=== PATIENT | female | born 1975 | race Caucasian/White ===

== ENCOUNTER 2021-04-13 12:12 | Outpatient (REF) | payer BC, SELFPAY ==
[2021-04-14 16:14] LABS: COVID-19 RT-PCR UVMMC Result Negative (Negative)
== END 2021-04-13 12:13 | disposition home or self-care (01) ==
LOC: LBN 12:12
PROVIDERS: PCP Nurse Practitioner; Visit Provider Family Medicine
DX: Z20.822 Contact with and (suspected) exposure to COVID-19 (principal)
CPT/HCPCS: U0003

== ENCOUNTER 2021-08-08 05:06 | Outpatient (CLI) | payer BC, SELFPAY ==
[2021-08-08 16:14] LABS: HCT 36.7 % (36.0-46.0); HGB 11.8 g/dL (11.2-15.7); MCH 29.6 pg (27.0-33.0); MCHC 32.2 % (32.0-36.0); MCV 92.2 fL (80-95); MPV 10.6 fL (8.0-11.0); Platelet Count 367 10^3/uL (130-400); RBC 3.98 10^6/uL (3.93-5.22); RDW 13.1 % (11.7-14.6); RDW-SD 44.5 fL; WBC 8.22 10^3/uL (4.4-10.8)
[2021-08-08 18:32] LABS: TSH (W/Ref FT4) 1.49 uIU/mL (0.36-3.74); Vitamin B12 > 2000 pg/mL (193-986)
[2021-08-08 18:46] LABS: Vitamin D 25 Total 47.1 ng/mL (30-100)
== END 2021-08-08 05:07 | disposition home or self-care (01) ==
LOC: LBO 05:06
PROVIDERS: PCP Nurse Practitioner; Visit Provider Nurse Practitioner
DX: Z98.84 Bariatric surgery status (principal); F41.8 Other specified anxiety disorders; K21.9 Gastro-esophageal reflux disease without esophagitis; F31.81 Bipolar II disorder; Z00.00 Encounter for general adult medical examination without abnormal findings
CPT/HCPCS: 36415; 82306; 85027; 82607; 84443

== ENCOUNTER 2022-06-07 01:05 | Outpatient (CLI) | payer OTHER, SELFPAY ==
--- NOTE | 2022-06-07 07:44 | DI.MAMMO_ITS ---
Exam(s) MAMMO SCREENING EXAM: MAMMO SCREENING CLINICAL HISTORY: screening,Z12.39. TECHNIQUE: Bilateral full field digital CC and MLO mammographic images were obtained with 3D tomosyn thesis and utilizing computer aided detection (CAD). COMPARISON: Prior outside mammograms were reviewed. FINDINGS: There has been no significant change in the appearance and distribution of the fibroglandular tissue. There are no new spiculated masses nor malignant appearing microcalcification groups. There is no significant architectural distortion nor skin thickening-retraction. IMPRESSION: No radiographic evidence of malignancy. BI-RADS Category 1 - Negative Breast Density - Category B - Scattered areas of fibroglandular density Breast density Category C or D implies that the patient has dense breast tissue. Dense breast tissue can make it harder to find cancer on a mammogram. Dense breast tissue is also associated with an incr eased risk of breast cancer. This information about the result of the mammogram report was provided to the patient to raise their awareness. Use this report when you speak with the patient about their risks for breast cancer, which includes their family history. At that time, you may recommend additional screening tests (Ultrasoun d or MRI) as these tests may add significant information. A negative radiographic report should not delay biopsy if a dominant or clinically suspicious mass is present. Up to ten percent of cancers are not identified on mammography. A negative report may reinforce clinical impression. Adenosis and dense breasts may obscure an underlying neoplasm. False positive reports average 6 to 10%. Patient will receive a letter notifying them of these results.
== END 2022-06-07 01:25 ==
LOC: DI 01:05
PROVIDERS: PCP Nurse Practitioner; Visit Provider Nurse Practitioner
DX: Z12.31 Encounter for screening mammogram for malignant neoplasm of breast (principal)
CPT/HCPCS: 77063; 77067

== ENCOUNTER 2022-08-16 02:46 | Outpatient (CLI) | payer OTHER, SELFPAY ==
[2022-08-16 07:23] LABS: Abs Immature Grans 0.04 10^3/uL (0.0-0.06); Absolute Basophil Count 0.09 10^3/uL (0.0-0.2); Absolute Eosinophil Count 0.27 10^3/uL (0.0-0.7); Absolute Lymphocyte Count 2.77 10^3/uL (1.2-3.4); Absolute Monocyte Count 0.59 10^3/uL (0.1-0.8); Absolute Neutrophil Count 5.98 10^3/uL (1.2-6.7); Basophils % 0.9; Eosinophils % 2.8; HCT 38.8 % (36.0-46.0); HGB 12.7 g/dL (11.2-15.7); Immature Grans % 0.4; Lymphocytes % 28.4; MCH 28.4 pg (27.0-33.0); MCHC 32.7 % (32.0-36.0); MCV 87 fL (80-95); MPV 10.2 fL (8.0-11.0); Monocytes % 6.1; Neutrophils % 61.4; Platelet Count 395 10^3/uL (130-400); RBC 4.47 10^6/uL (3.93-5.22); WBC 9.74 10^3/uL (4.4-10.8)
[2022-08-16 09:23] LABS: ALT 24 U/L (14-59); AST 13 U/L (15-37); Albumin 3.7 g/dL (3.4-5.0); Alkaline Phosphatase 119 U/L (46-116); Anion Gap 7.6 mmol/L (3-11); BUN 12 mg/dL (7-18); Bilirubin, Total 0.3 mg/dL (0.2-1.0); CO2 28.4 mmol/L (21.0-32.0); CREATININE 0.8 mg/dL (0.55-1.02); Calcium 9.3 mg/dL (8.5-10.1); Calculated LDL 75 mg/dL (<100); Chloride 105 mmol/L (98-107); Cholesterol 168 mg/dL (<200); Estimated GFR 91.97 (mL/min/1.73m2); Ferritin 21 ng/mL (8-252); Glucose 102 mg/dL (74-106); HDL Cholesterol 71 mg/dL (40-60); Potassium 4.3 mmol/L (3.5-5.1); Sodium 141 mmol/L (136-145); TSH (W/Ref FT4) 3.87 uIU/mL (0.36-3.74); Total Protein 7.3 g/dL (6.4-8.2); Triglyceride 111 mg/dL (<150)
[2022-08-16 09:32] LABS: Vitamin B12 > 2000 pg/mL (193-986)
[2022-08-16 09:49] LABS: FREE T4 0.86 ng/dL (0.76-1.46)
== END 2022-08-16 02:47 | disposition home or self-care (01) ==
LOC: LBO 02:46
PROVIDERS: PCP Nurse Practitioner; Visit Provider Nurse Practitioner
DX: F31.81 Bipolar II disorder (principal); Z98.84 Bariatric surgery status
CPT/HCPCS: 36415; 80053; 80061; 82607; 82728; 84439; 84443; 85025

== ENCOUNTER 2022-10-31 15:56 | Outpatient (REF) | payer OTHER, SELFPAY | END 2022-10-31 15:57 | disposition home or self-care (01) | LOC: LBN 15:56 | PROVIDERS: PCP Nurse Practitioner; Visit Provider Obstetrics & Gynecology Gynecology | DX: R30.0 Dysuria (principal) | CPT/HCPCS: 87086 ==

== ENCOUNTER 2023-01-01 18:25 | Outpatient (CLI) | payer OTHER, SELFPAY ==
[2023-01-01 15:54] LABS: Lithium < 0.2 mmol/l (0.6-1.2)
== END 2023-01-01 18:26 | disposition home or self-care (01) ==
LOC: LBO 18:29
PROVIDERS: PCP Nurse Practitioner; Visit Provider Nurse Practitioner
DX: F31.81 Bipolar II disorder (principal); Z79.899 Other long term (current) drug therapy; Z51.81 Encounter for therapeutic drug level monitoring
CPT/HCPCS: 36415; 80178

== ENCOUNTER 2023-01-03 15:44 | Outpatient (CLI) | payer OTHER, SELFPAY ==
--- NOTE | 2023-01-03 15:30 | RT.EKG_ITS ---
APPROVED REPORT Exam: Resting ECG Reason for Exam: med monitoring Patient Location: O HR:64 bpm ECG Measurements Heart Rate 64 AXIS SD 136 P 50 QRSd 90 QRS -8 QT 411 T 7 QTc 424 Conclusion Sinus rhythm...normal P axis, V-rate 50- 99 Ventricular premature complex...V complex w/ short R-R interval Low voltage, precordial leads...precordial leads <1.0mV Nonspecific T abnrm, anterolateral leads...T <-0.10mV, I aVL V2-V6
== END 2023-01-03 15:45 | disposition home or self-care (01) ==
LOC: DI.KIM 15:45
PROVIDERS: PCP Nurse Practitioner; Visit Provider Nurse Practitioner
DX: F31.81 Bipolar II disorder (principal); Z51.81 Encounter for therapeutic drug level monitoring
CPT/HCPCS: 93010

== ENCOUNTER 2023-01-09 15:13 | Outpatient (CLI) | payer OTHER, SELFPAY ==
[2023-01-09 11:01] LABS: Lithium 0.7 mmol/l (0.6-1.2)
== END 2023-01-09 15:14 | disposition home or self-care (01) ==
LOC: LBO 15:13
PROVIDERS: PCP Nurse Practitioner; Visit Provider Nurse Practitioner
DX: F31.81 Bipolar II disorder (principal); Z51.81 Encounter for therapeutic drug level monitoring; Z79.899 Other long term (current) drug therapy
CPT/HCPCS: 36415; 80178

== ENCOUNTER 2023-01-16 19:16 | Outpatient (REF) | payer OTHER, SELFPAY ==
[2023-01-16 20:23] LABS: COVID-19 PCR Negative (Negative); Influenza A PCR Negative (Negative); Influenza B PCR Negative (Negative); RSV PCR Negative (Negative)
[2023-01-16 20:36] LABS: Source Nasopharynx
== END 2023-01-16 19:17 | disposition home or self-care (01) ==
LOC: LBN 19:16
PROVIDERS: PCP Nurse Practitioner; Visit Provider Family Medicine
DX: J06.9 Acute upper respiratory infection, unspecified (principal); Z20.822 Contact with and (suspected) exposure to COVID-19
CPT/HCPCS: 87637

== ENCOUNTER 2023-02-16 10:04 | Outpatient (CLI) | payer OTHER, SELFPAY ==
[2023-02-16 11:07] LABS: Lithium 0.7 mmol/l (0.6-1.2)
== END 2023-02-16 10:05 | disposition home or self-care (01) ==
LOC: LBO 10:04
PROVIDERS: PCP Nurse Practitioner; Visit Provider Nurse Practitioner
DX: F31.81 Bipolar II disorder (principal)
CPT/HCPCS: 36415; 80178

== ENCOUNTER 2023-04-17 08:22 | Day surgery (SDC) | payer OTHER, SELFPAY ==
--- NOTE | 2023-04-16 23:42 | SCONE_ITS ---
Date of service: 04/17/23 Time of Service: 23:45 Assessment and Plan Assessment and plan (1) Regurgitant esophagitis: Status: Acute Assessment and plan: Patient is to come on Sunday for evaluation of her upper GI symptoms syndrome and lower GI syndrome there is concern that she is having breakthrough symptoms. She wakes up often in the morning with material on her pillow and true regurgitation Planning: From the CT scans she has had it does not appear that the prednisone has slipped and is no longer and it is does not manage anatomical position and is not applying any benefit. I did switch her over to [place] and she can use at as well as Carafate as needed Remember to not mix it with any of the medications Patient may need to be admitted to hospital if that help take care of himself after the surgery. He has very limited resources (2) Weight gain: Status: Acute (3) Concussion: Status: Acute (4) Dysuria: Status: Acute (5) Obesity: Status: Chronic (6) Depression: Status: Chronic (7) Bipolar 2 disorder, major depressive episode: Status: Acute (8) Anxiety: Status: Chronic (9) GERD (gastroesophageal reflux disease): Status: Chronic History of Present Illness Narrative: Portia Priceis a 47-year-old female who had a previous lab been placed for weight loss. This was converted to medical pouch she has done very well with the and lost a large amount of weight. In the last 6 months she has not been good about taking her medications and she has been eating a lot of foods that are highly processed or fried. She has noted that she has put weight back. Since she is put the weight back on. She notices that she has been having more more problems with belching burps vomit that wakes her up at night. She is regaining back to 4- year history of the problem that she had not initially lost with gastric bypass she was on omeprazole twice a day we will switch her over to once a day and for some breakthrough Carafate during the day and at bedtime. We gave her extensive literature about foods that are good for you with following Mediterranean diet low on red meat refined white carbs plenty of fruits and vegetables. Review of Systems All systems reviewed & are unremarkable except as noted in HPI and below PFSH All Active Problems Regurgitant esophagitis (Acute) Weight gain (Acute) Concussion (Acute) Suprapubic pain, acute (Acute) Dysuria (Acute) Exercise-induced bronchoconstriction (Acute) Obesity (Chronic) hx gastric bypass Depression (Chronic) Bipolar 2 disorder, major depressive episode (Acute) [facility] prescribes all psych meds Anxiety (Chronic) GERD (gastroesophageal reflux disease) (Chronic) Medical History History of gastrostomy tube placement (~10/14/15) Protein calorie malnutrition Intestinal malabsorption PCOS (polycystic ovarian syndrome) started age 12 Hearing loss (~2019) right ear, audiology spring 2020- no abnormalities History of COVID-19 suspect- never tested Surgical History S/P repair of paraesophageal hernia (~10/12/15) H/O left wrist surgery H/O gastric bypass (~10/12/15) Gabriela-en-y H/O laparoscopy (~10/14/15) diagnostic S/P bariatric surgery Family History Mother Depression Hypertension Heart disease Father No problems noted. Sister No problems noted. Sister No problems noted. Sister No problems noted. Son , 10 weeks Heart disease Son No problems noted. Paternal Grandmother , 90's No problems noted. Paternal Uncle Substance use disorder Paternal Cousin Substance use disorder Paternal Grandfather Cancer lung cancer Maternal Grandmother Depression Maternal Aunt Depression Social History Smoking/Tobacco Use Status: Never Second Hand Exposure: Yes Smoking risk assessment performed?: Yes Alcohol Intake: current Alcohol Intake frequency: a few times a month Alcohol type: wine and hard liquor Counseling given: No Drug use: Never Substance use type: does not use Counseling given: No Adopted: No Caregiver/Support person: No Foster care: No Household members: spouse and other Details: Ricardo Nichols Housing: house Number of Children: 1 Communication Needs: Corrective Lenses Education Level: college Details: bachelor's degree Do you need help understanding health information?: Never current occupation: [employer] Pets and animals: Yes Pets and animals: dog(s) Sexually active: Yes Do you think of yourself as: lesbian/pyle/homosexual Current gender identity: female What is your relationship status?: How often do you talk on the phone with friends or family?: twice per week How often do you get together with friends or relatives?: once per week How often do you attend anabaptist or lutheran services?: 1-3 times per year Do you belong to any clubs or organized social groups?: yes Panel score (0-1 are the most socially isolated patients): 3 What type of physical activity do you participate in: other Details: VR headset Duration: 15-30 minutes/day Frequency: 1-2 times per week Julisa/Congregation: None Special julisa needs: No Seatbelt use: always Helmet use: No Drive intox or ride w/intox bulk driver: No Working smoke detector in home: Yes Carbon monox detector in home: Yes Do you feel safe at home: Yes Do you feel safe in your relationship?: Yes Exam Narrative Exam Narrative: PHYSICAL EXAM GENERAL APPEARANCE: Alert, healthy appearance, oriented, x 3,? in no acute distress HYDRATION: Well hydrated HEAD, EYES, EARS, NECK, THROAT: Head is normocephalic, pupils equal, round, reactive to light and accommodation, ocular movement intact, sclera clear and no jaundice. ?Dentition intact. No sore throat.? No jaw pain. No thrush NECK: no lymphadenopathy.? Trachea midline.? Neck supple.? No JVD LUNGS: normal respiration/normal chest excursion. ?Clear to auscultation bilaterally. ?No wheeze. ?HEART: Regular rate and rhythm. no murmurs ABDOMEN: soft and non-tender to palpation.? Normal bowel sounds.? No hernias.? Basic Metabolic Sodium 141 mmol/L (136-145) 08/16/22 Potassium 4.3 mmol/L (3.5-5.1) 08/16/22 Chloride 105 mmol/L (98-107) 08/16/22 Carbon Dioxide 28.4 mmol/L (21.0-32.0) 08/16/22 BUN 12 mg/dL (7-18) 08/16/22 Creatinine 0.8 mg/dL (0.55-1.02) 08/16/22 Glucose 102 mg/dL (74-106) 08/16/22 Comprehensive Metabolic Panel Sodium 141 mmol/L (136-145) 08/16/22 07:11 Potassium 4.3 mmol/L (3.5-5.1) 08/16/22 07:11 Chloride 105 mmol/L (98-107) 08/16/22 07:11 Carbon Dioxide 28.4 mmol/L (21.0-32.0) 08/16/22 07:11 BUN 12 mg/dL (7-18) 08/16/22 07:11 Creatinine 0.8 mg/dL (0.55-1.02) 08/16/22 07:11 Glucose 102 mg/dL (74-106) 08/16/22 07:11 Calcium 9.3 mg/dL (8.5-10.1) 08/16/22 07:11 Total Bilirubin 0.3 mg/dL (0.2-1.0) 08/16/22 07:11 ALT 24 U/L (14-59) 08/16/22 07:11 AST 13 U/L (15-37) L 08/16/22 07:11 Alkaline Phosphatase 119 U/L (46-116) H 08/16/22 07:11 Total Protein 7.3 g/dL (6.4-8.2) 08/16/22 07:11 Albumin 3.7 g/dL (3.4-5.0) 08/16/22 07:11 Diabetes results Glucose 102 mg/dL (74-106) 08/16/22 Total Cholesterol 168 mg/dL (<200) 08/16/22 LDL Cholesterol, Calc 75 mg/dL (<100) 08/16/22 HDL Cholesterol 71 mg/dL (40-60) 08/16/22 Triglycerides 111 mg/dL (<150) 08/16/22 BUN 12 mg/dL (7-18) 08/16/22 Creatinine 0.8 mg/dL (0.55-1.02) 08/16/22 Est GFR (CKD-EPI 2020) 91.97 (mL/min/1.73m2) 08/16/22 Sodium 141 mmol/L (136-145) 08/16/22 Potassium 4.3 mmol/L (3.5-5.1) 08/16/22 Chloride 105 mmol/L (98-107) 08/16/22 Carbon Dioxide 28.4 mmol/L (21.0-32.0) 08/16/22 Calcium 9.3 mg/dL (8.5-10.1) 08/16/22 AST 13 U/L (15-37) L 08/16/22 ALT 24 U/L (14-59) 08/16/22 Total Protein 7.3 g/dL (6.4-8.2) 08/16/22 Albumin 3.7 g/dL (3.4-5.0) 08/16/22 TSH 3.87 uIU/mL (0.36-3.74) H 08/16/22 Vitamin B12 > 2000 pg/mL (193-986) H 08/16/22 Tick borne Illnesses No Data to Display Lipid profile Total Cholesterol 168 mg/dL (<200) 08/16/22 HDL Cholesterol 71 mg/dL (40-60) 08/16/22 LDL Cholesterol, Calc 75 mg/dL (<100) 08/16/22 Triglycerides 111 mg/dL (<150) 08/16/22
--- NOTE | 2023-04-17 08:15 | ANES.PREOP_ITS ---
General Info Date of Service Date Performed: 04/17/23 Height: 5 ft 2 in Weight: 86.183 kg Body Mass Index (BMI): 34.7 Surgical Procedure: Operation Date: 04/17/23 09:05 Proposed Procedure Side Surgeon p Gastroscopy Xi Jennings, Meds Allergies and Home Medications Allergies Allergy/AdvReac Type Severity Reaction Status Date / Time aripiprazole [From Abilify] Allergy Unknown Other (See Verified 04/17/23 08:44 Comment) cucumber Allergy Unknown Skin Rash Verified 04/17/23 08:44 latex Allergy Unknown Skin Rash Verified 04/17/23 08:44 NSAIDS (Non-Steroidal Allergy Unknown Diarrhea Verified 04/17/23 08:44 Anti-Inflamma Latuda AdvReac Intermediate parathesias Uncoded 04/17/23 08:44 Home Medication Medication Instructions Recorded calcium carbonate 500 mg-vitamin 1 tab PO BID 12/14/20 D3 5 mcg (200 unit) tablet albuterol sulfate 90 mcg/actuation 2 puff inhalation Q6H PRN 07/28/21 aerosol inhaler bronchospasm #8.5 grams hyoscyamine sulfate 0.125 mg 0.125 mg PO BID-QID PRN dyspepsia 03/23/22 disintegrating tablet #30 tabs therapeutic multivitamin 1 tab PO BID 05/17/22 tramadol 50 mg tablet 50 mg PO DAILY PRN 08/15/22 melatonin 5 mg tablet 2.5 mg PO HS PRN 11/08/22 lithium carbonate 450 mg 900 mg (2 x 450 mg) PO DAILY #180 01/03/23 tablet,extended release tabs ondansetron HCl 8 mg tablet 8 mg PO TID PRN nausea and 01/03/23 vomiting #30 tabs acetaminophen 500 mg capsule 500 mg PO Q6H PRN fever or pain 01/16/23 clonazepam 0.5 mg tablet 0.5 mg PO BID #60 tabs 02/12/23 eszopiclone 3 mg tablet 3 mg PO QHS #90 tabs 02/12/23 hydroxyzine pamoate 25 mg capsule 100 mg (4 x 25 mg) PO BID PRN 02/12/23 itching or anxiety #60 caps lamotrigine 200 mg tablet 200 mg PO DAILY #90 tabs 02/12/23 pantoprazole 40 mg tablet,delayed 40 mg PO DAILY #90 tabs 04/12/23 release (Protonix) omeprazole 20 mg capsule,delayed mg 04/17/23 release Current Visit Medications: Current Medications Generic Name Dose Route Start Last Admin Trade Name Chris PRN Reason Stop Dose Admin Ringer's Solution 1,000 mls @ 80 mls/hr 04/17/23 06:00 IV 04/17/23 23:59 INFUSION TISH IV Miscellaneous Supplies 1 each 04/17/23 06:00 Iv Access IV 04/17/23 23:59 DIRECTED TISH Sodium Chloride 0 ml 04/17/23 06:00 Normal Saline Flush 10 Ml Syr IV 04/17/23 23:59 PRN PRN Sodium Chloride 0 ml 04/17/23 06:00 Normal Saline 10 Ml Vial IJ 04/17/23 23:59 DIRECTED PRN Sterile Water 0 ml 04/17/23 06:00 Water,Injection,Sterile 10 Ml Vial IJ 04/17/23 23:59 DIRECTED PRN PFSH Active Problems Active Problems: Problem Status Onset Code Regurgitant esophagitis K21.00 Weight gain R63.5 Concussion S06.0XAA Suprapubic pain, acute R10.2 Dysuria R30.0 Exercise-induced bronchoconstriction J45.990 Obesity E66.9 Depression F32.9 Bipolar 2 disorder, major depressive episode F31.81 Anxiety F41.9 GERD (gastroesophageal reflux disease) K21.9 Medical History Medical History History of gastrostomy tube placement (~10/14/15) Protein calorie malnutrition Intestinal malabsorption PCOS (polycystic ovarian syndrome) started age 12 Hearing loss (~2019) right ear, audiology spring 2020- no abnormalities History of COVID-19 suspect- never tested Surgical History Surgical History S/P repair of paraesophageal hernia (~10/12/15) H/O left wrist surgery H/O gastric bypass (~10/12/15) Gabriela-en-y H/O laparoscopy (~10/14/15) diagnostic S/P bariatric surgery Tobacco Smoking/Tobacco Use Status: Never Passive smoking exposure: Yes Second hand exposure: Yes Alcohol Alcohol Intake: current Alcohol intake frequency: a few times a month Alcohol type: wine and hard liquor Substance Use Substance use: Never Substance use type: does not use Vital Signs and Lab Results Vital Signs Most Recent Vital Signs in EMR: Temp Pulse Resp BP Pulse Ox 36.7 C 72 18 105/80 99 04/17/23 08:41 04/17/23 08:41 04/17/23 08:41 04/17/23 08:41 04/17/23 08:41 Lab Results Blood Type / Crossmatch: No Data to Display Complete Blood Count: No Data to Display Complete Metabolic Panel: No Data to Display Liver Function Panel: No Data to Display Coagulation Panel: No Data to Display Cardiac Panel: No Data to Display Arterial Blood Gas: No Data to Display Venous Blood Gas: No Data to Display Pancreas Panel: No Data to Display Thyroid Panel: No Data to Display Infectious Disease: No Data to Display Blood Cultures: No Data to Display Toxicology Panel: No Data to Display Panel: No Data to Display Imaging and Studies Imaging and Studies Study information below may be from another EMR and interpreted by another pr ovider. Please see original notes in EMR for more complete details. EKG Summary: 01/06: sinus, PVCs. Anesthesia Assessment and Plan Anesthesia History Personal History: No History of Anesthesia Complications Family History: No Family History of Anesthesia Complications Exercise Tolerance Exercise Tolerance: Metabolic Equivalents>4 Cardiac & Pulmonary Exam Cardiac Exam: Normal S1/S2 Heart Sounds Pulmonary Exam: Clear Bilateral Breath Sounds Implantable Cardiac Device Does patient have a Pacemaker or an ICD?: No Airway Exam Known Difficult Airway: No Mallampati Class: 2 Mouth Opening: Normal (> 3cm) Thyromental Distance: Greater than 3 cm Neck Range of Motion: Full ROM Neck Circumference: Normal Teeth Condition: Normal Dentition ASA Classification ASA Score: ASA 2 Emergency Case?: No NPO Status NPO Status: NPO Clears >2 hours, Solids >8 hours Status Status: Not Relevant due to Medical History Anesthesia Plan Resuscitation Status: Full Code Anesthesia Technique: General Anesthesia Airway Planned: Natural Airway Monitors Used: Standard Monitors Preoperative Comments:: 47 yo female with GERD for EGD. Sig PMHx: exercise induced bronchoconstriction (albuterol), esophagitis/GERD (protonix), depression/bipolar/anxiety (lithium), never smoker, occ EtOH.
[2023-04-17 08:41] VITALS: BP 105/80; PULSE 72; RESP 18; TEMP 36.7; O2SAT 99
[2023-04-17 09:03] VITALS: BMI 34.7
[2023-04-17] MEDS: Lactated Ringers 1,000 ML 80 ML IV (09:10)
--- NOTE | 2023-04-17 09:40 | STOM_PTH ---
PATIENT: Portia Mera LOC: [facility] U#:[id number] AGE/SX: 47/F ROOM: RE04/17/[address]: Xi Jennings : 1975 BED: DIS: 04/17/2023 SPEC #: [id number] RECD: 04/17/23 12:53 STATUS: ABIGAIL RE #: [id number] ERI: 04/17/23 09:[address]: Xi Jennings DEPT: Surgical Specimen RECD BY: Alice Duncan ENTERED: 04/17/23 12:55 SP TYPE: STOMACH OTHR DR: Elin Putnam APRN Tissues: 1 - STOMACH BIOPSY 2 - STOMACH BIOPSY 3 - ESOPHAGUS BIOPSY 4 - ESOPHAGUS BIOPSY Procedures: GROSS AND MICRO LEVEL 4 Comments: [id number]
--- NOTE | 2023-04-17 09:49 | W.PM.DSUDISC ---
Date of service: 04/17/23 Time of Service: 09:49 Discharge Plan Disposition Condition: Fair Discharge Details Reason For Visit: egd Attending Provider: Xi Jennings Primary Care Provider: Elin Putnam Home Meds and New Rx's Prescriptions: No Action albuterol sulfate 90 mcg/actuation HFA aerosol inhaler 2 puff inhalation Q6H PRN (Reason: bronchospasm) Qty: 8.5 1RF melatonin 5 mg tablet 2.5 mg PO HS PRN tramadol 50 mg tablet 50 mg PO DAILY PRN Patient Comments: Last filled 2020 clonazepam 0.5 mg tablet 0.5 mg PO BID Qty: 60 2RF hydroxyzine pamoate 25 mg capsule 100 mg PO BID PRN (Reason: itching or anxiety) Qty: 60 1RF lamotrigine 200 mg tablet 200 mg PO DAILY Qty: 90 3RF eszopiclone 3 mg tablet 3 mg PO QHS Qty: 90 1RF Rx Instructions: cancel 2mg script yet acetaminophen 500 mg capsule 500 mg PO Q6H PRN (Reason: fever or pain) pantoprazole [Protonix] 40 mg tablet,delayed release (DR/EC) 40 mg PO DAILY Qty: 90 4RF Patient Comments: pt reports she has not started yet lithium carbonate 450 mg tablet extended release 900 mg PO DAILY Qty: 180 3RF Rx Instructions: Generic Eskalith please. ondansetron HCl 8 mg tablet 8 mg PO TID PRN (Reason: nausea and vomiting) Qty: 30 2RF calcium carbonate-vitamin D3 500 mg(1,250mg) -200 unit tablet 1 tab PO BID hyoscyamine sulfate 0.125 mg tablet,disintegrating 0.125 mg PO BID-QID PRN (Reason: dyspepsia) Qty: 30 0RF therapeutic multivitamin Tablet 1 tab PO BID omeprazole 20 mg capsule,delayed release(DR/EC) Discharge Instructions Additional Instructions: Post EGD Instruction ?You had anesthesia for your EGD/stomach scope today.? For your safety, please do the following for the next twenty-four (24) hours: Do Not operate a motor vehicle (car, truck, motorcycle, etc.) Do Not drink alcoholic beverages or use any recreational drugs for the first 24 hours or while taking pain medications. The medications in your body may have a reaction that can be dangerous. Do Not make any important decisions or sign any important papers You have just had a gastroscopy (EGD) or upper GI tract examination. It is important for your smooth recovery that you carefully follow the recommendations below. Do not hesitate to call if any questions should arise about your anesthesia, condition, or care. -Symptoms you may experience during the next 24 hours: ?1. Mild abdominal pain or excessive gas or a bloated feeling which improves with rest, liquids, eating? slightly, and walking as tolerated. 2. Drowsiness and/or forgetfulness because of the medications you were given. ?3. Throat numbness for about 1 hour. 4. A sore throat which you can treat with throat lozenges or by gargling with salt water 4-5 times a day. 5. Redness at the site of your IV which you can treat with warm compresses. SPECIAL INSTRUCTIONS: 1. You may resume your previous diet in one hour. We recommend a light meal to start, then progress as tolerated. 2. Restart regular medications in one hour. 3. No aspirin or non-steroidal containing medication for three days. 4. No lifting over 20 pounds or strenuous activity for the first 24 hours after your procedure. After 24 hours there are no restrictions on your activity, but you may feel fatigued for a few days. Findings: micropounch stricture-slight wrap appears intact/wait for results of CT cont ppi -Medications: -Continue to follow lifestyle modifications: No alcohol, tobacco products, Aspirin or NSAID's (ibuprofen, Motrin, Naprosyn, aleve, etc).? Try to limit/avoid:? soda pop/any carbonated beverages, caffeine (including tea & chocolate), and acidic foods, (tomatoes, citrus, onions, peppermints) spicy or fried/fatty foods. Do not lie down for 30 minutes after eating, and do not eat 2 hours prior to bedtime. Avoid wearing tight fitting clothing/ belts. Follow up: -My office will send a letter with the results of your biopsy?s in 2-3wks time. Call the office at [phone] (Office) or [phone] (Hospital), or go to the ER right away if you notice any of the followin. Vomiting blood and /or ?coffee ground? material. ?2. Worsening of abdominal pain or cramping. ?3. Trouble with breathing, cough, and/or fever (temperature above 101.5 F). 4. Increasing pain with swallowing. ?5. Chest pain. 6. Any new symptoms. 7. Worsening of the redness at the IV site Activity:: see above Diet:: As Tolerated DS: Diagnosis Discharge Diagnosis (1) Regurgitant esophagitis: Status: Acute (2) Weight gain: Status: Acute (3) Concussion: Status: Acute (4) Dysuria: Status: Acute (5) Obesity: Status: Chronic (6) Depression: Status: Chronic (7) Bipolar 2 disorder, major depressive episode: Status: Acute (8) Anxiety: Status: Chronic (9) GERD (gastroesophageal reflux disease): Status: Chronic
--- NOTE | 2023-04-17 09:52 | ENDO_ITS ---
Date of service: 04/17/23 Time of Service: 09:52 Endoscopy Report DATE OF PROCEDURE: 04/17/23 PRE-OP DIAGNOSIS: Worsening reflux. History of gastric bypass and Naif POST-OP DIAGNOSIS: same SURGEON: Xi Jennings ANESTHESIA TYPE: General:No Airway ESTIMATED BLOOD LOSS: 1 PATHOLOGY: other COMPLICATIONS: None DISPOSITION: same day PREP: Miralax/Dulcolax PROCEDURE DESCRIPTION: After informed consent was obtained the patient was take to the procedure room and placed in a supine position. Monitors were applied and a time out was done. The patients name, date of , procedure type, allergies to medications and metal in their body was reviewed. A bite block was placed and the patient was sedated. Once sedated and comfortable the gastroscope was advanced through the oropharynx which was grossly normal into the esophagus. The proximal and mid- esophagus were normal. In the distal esophagus : The wrap does appear to have loosened, but is still present. She does have a slight stricture 2 cm above the GE junction. However I am able to pass the scope through the stricture. She has a very small micro pouch- still ~150cc. The GE junction is at 42 cm and the gastrojejunal anastomosis at 38 cm. The gastrojejunal anastomosis is widely patent. There is no signs of bleeding or stricture. I am able to pass the scope about 30 cm down the limb. The mucosa appears pink and healthy. A biopsy was taken. The scope is retroflexed. There is no hiatal hernia. There is no ulcers or gastritis. Biopsies were taken of the micro pouch/GE junction/distal esophagus. The scope was retracted back into the esophagus and biopsies were done of the GE junction to rule out Marks's. The Z line was regular. The scope was removed and the patient was woken up and taken back to [facility] in stable condition.
[2023-04-17 09:55] VITALS: BP 107/75; PULSE 85; RESP 16; TEMP 36.5; O2SAT 97
--- NOTE | 2023-04-17 10:00 | DI.CT_ITS ---
Exam(s) CT CHEST/ABD W EXAM: CT CHEST/ABD W CLINICAL HISTORY: Post EGD,increased gerd,? slipped jesse TECHNIQUE: Imaging Protocol: Axial computed tomography images with coronal and sagittal reformatted images were created and reviewed CONTRAST MATERIAL: Intravenous: Omnipaque 350 contrast volume:100 mL Oral: No COMPARISON: No exams were available for comparison FINDINGS: The examination is limited due to patient motion artifact. CHEST: Tracheobronchial tree: Patent where visualized. Pulmonary parenchyma: No consolidation or dominant measurable mass. There is a 2 mm noncalcified pulm onary nodule in the periphery of the right upper lobe. (Series 5, image 195). There is atelectasis seen in the lung bases. No focal consolidating infiltrate is seen. Visualized thyroid gland: Unremarkable. Mediastinum and Yanelis: No dominant adenopathy or fluid collection. There are postsurgical changes seen at the gastroesophageal junction. There is a question of a recurrence hiatal hernia. Pleura: No effusion or pneumothorax. Heart: The heart is not dilated. No coronary artery calcifications are seen. No pericardial effusion. Pulmonary arteries: No evidence of a large central pulmonary embolism. The examination was not perfo rmed for optimal opacification of the pulmonary arteries. Aorta: Thoracic aorta non-dilated. Lymph nodes: Within normal limits. Soft tissues: Unremarkable. Bones:Within normal limits for the patient's age. ABDOMEN: Liver: Normal density. No measurable mass. Portal, Superior Mesenteric, and Splenic Veins: Unremarkable. Gallbladder and Biliary Tract: No radiodense calculus or dilation. Pancreas: Normal density, no abnormal calcifications or inflammatory process. Spleen: Normal. Adrenals: There is a 2.1 x 2 cm hypodense right adrenal nodule. The left adrenal gland is unremarkab le. Kidneys: Normal size, contour and axis. No radiodense stones or obstructive uropathy. No masses seen. Abdominal Aorta: Abdominal portion non-dilated. Bowel: No obstruction or bowel wall thickening. Appendix is unremarkable. Postsurgical changes are se en in the small bowel in the stomach. Peritoneal Cavity: No ascites, collection or mesenteric inflammatory response. No free air. Lymph Nodes: Within normal limits. Bones: Within normal limits for the patient's age. Soft Tissues: Unremarkable. IMPRESSION: 1. Findings suspicious for recurrent hiatal hernia. Upper GI should be considered for further evalua tion. 2. 2 mm noncalcified peripheral pulmonary nodule in the right upper lobe. In low risk patients, no f ollow-up is warranted. In high risk patients, optional [address] scan of the chest may be obtained . (Chris et al, 2017). 3. 2.1 x 2 cm hypodense right adrenal nodule. This may represent an adrenal adenoma. MRI of the adr enal gland is recommended for further evaluation. RADIATION DOSE DELIVERED: Total DLP DATA REPOSITORY: All CT scans at this facility are submitted to the National Radiology Data Registry (NRDR) Dose Index Registry (DIR) with the [employer] ([employer]). RADIATION OPTIMIZATION: All CT scans at this facility use at least one of these dose optimization te chniques: automated exposure control; mA and/or kV adjustment per patient size (includes targeted exa ms where dose is matched to clinical indication); or iterative reconstruction.
--- NOTE | 2023-04-17 10:08 | W.ANESPOSTOP ---
Postoperative Evaluation Date, Time and Location Date Performed: 04/17/23 Time Performed: 10:08 Patient Location: Day Surgery Unit Vital Signs Most Recent Imported Vital Signs: Most Recent Vital Signs Temp Pulse Resp BP Pulse Ox 36.5 C 85 16 107/75 97 04/17/23 09:55 04/17/23 09:55 04/17/23 09:55 04/17/23 09:55 04/17/23 09:55 Pain Score Most Recent Pain Score: Most Recent Pain Score Pain Level 0 04/17/23 09:55 Assessment Mental Status: Awake (Alert & Oriented to Patient Baseline) Airway and Respiratory Function: Patent airway with normal (patient baseline) respiratory exam Cardiovascular Function: Hemodynamically Stable Hydration Status: Adequately Hydrated Nausea & Vomiting: No Nausea or Vomiting Pain: Pt. Denies Any Pain Peripheral Nerve Block: Patient did not receive a nerve block
[2023-04-17 10:22] VITALS: BP 106/70; PULSE 91; RESP 16; TEMP 36.5; O2SAT 99
[2023-04-17] MEDS: Normal Saline - Diluent 50 ML VIAL IJ (10:59)
[2023-04-17] MEDS: Omnipaque 350 MG/ML 500 ML BTL-Imaging package IJ (10:59)
== END 2023-04-17 08:23 | disposition home or self-care (01) ==
PROVIDERS: PCP Nurse Practitioner; Visit Provider Surgery
PROC: 0DJ68ZZ Inspection of Stomach, Via Natural or Artificial Opening Endoscopic (ICD-10-PCS; CPT 43235; principal; 2023-04-17 09:00)
DX: K21.00 Gastro-esophageal reflux disease with esophagitis, without bleeding (principal); E66.9 Obesity, unspecified; J45.990 Exercise induced bronchospasm; F41.9 Anxiety disorder, unspecified; F31.81 Bipolar II disorder; K22.89 Other specified disease of esophagus
CPT/HCPCS: 43239; 81025; 88305; 71260; 74160; J1100; J2250; J2405; J2704